=== PATIENT | male | born 1990 | race Caucasian/White ===

== ENCOUNTER 2021-06-28 04:30 | Day surgery (SDC) | payer OTHER ==
[2021-06-22 17:07] VITALS: BMI 27.3
[2021-06-28] MEDS ORDERED: MIDAZOLAM HCL 2 MG/2 ML SINGLE DOSE VIAL ONE ×2 (09:04)
[2021-06-28] MEDS ORDERED: oxyCODONE HCL 5 MG TABLET PO PRN (11:25)
[2021-06-28] MEDS ORDERED: ACETAMINOPHEN 500 MG TABLET (FP) PO PRN (11:25)
[2021-06-28] MEDS ORDERED: ONDANSETRON 4 MG/2 ML VIAL IVPUSH PRN (11:25)
[2021-06-28] MEDS ORDERED: LACTATED RINGERS SOLUTION 1,000 ML IV SCH (11:30)
[2021-06-28 12:44] VITALS: BP 121/61; PULSE 60; TEMP 97.5
== END 2021-06-28 12:45 | disposition home or self-care (01) ==
LOC: JASU-SURG 04:30
PROVIDERS: ATTEND Urology
PROC: 0TF4XZZ Fragmentation in Left Kidney Pelvis, External Approach (ICD-10-PCS; principal; 2021-06-28 12:00)
DX: N20.0 Calculus of kidney (principal)